=== PATIENT | female | born 1990 | race Caucasian/White ===

== ENCOUNTER 2017-05-17 18:40 | Emergency (ER) | payer MEDICARE, OTHER ==
[~2017-05-17] VITALS: Ht 167.6 cm; Wt 72.6 kg
[~2017-05-17 18:40] MED LIST: COLACE100 MG ORAL; DEPAKOTE ER500 MG ORAL; QUETIAPINE FUM200 MG ORAL; VENLAFAXINE HCL25 MG ORAL
[2017-05-17] MEDS ORDERED: SEROQUEL200 MG ORAL (18:46)
[2017-05-17 18:59] VITALS: BP 132/83
[2017-05-17 19:13] LABS: APPEARANCE,URINE TURBID; KETONES,URINE NEGATIVE (NEGATIVE); LEUKOCYTE ESTERASE ,URINE 1+ (NEGATIVE); NITRITE,URINE NEGATIVE (NEGATIVE); PH,URINE 8 (4.5-8.0); PROTEIN,URINE NEGATIVE (NEGATIVE); UROBILINOGEN,URINE 1 MG/DL (0.0-1.0)
[2017-05-17 19:15] VITALS: BP 132/83
[2017-05-17 19:21] LABS: RBC,URINE 0-2 /HPF (0 - 2); SQUAMOUS EPITHELIAL CELL,UR MANY /LPF (NONE/OCC); WBC,URINE 0-2 /HPF (0 - 2)
[2017-05-17 19:22] LABS: AMORPHOUS SEDIMENT,UR MANY /LPF; BACTERIA,URINE MANY /HPF
--- NOTE | 2017-05-17 19:40 | Emergency Room Report ---
History of Present Illness General Chief Complaint: Abdominal Pain Source: Patient, Medical Record Present Illness HPI Patient left without being fully evaluated by me Upon medical records, patient has had chronic abdominal pain, has been seen here in our ER, wanting opiates, left AMA last visit Patient was upset, stating that she wanted opiates, left because she was told that he cannot administer pain medication without performing workup first Patient ambulatory, appeared nontoxic Allergies: Coded Allergies: KETOROLAC (Verified Allergy, Unknown, 09/24/15) METOCLOPRAMIDE (Verified Allergy, Unknown, 09/24/15) PROCHLORPERAZINE (Verified Allergy, Unknown, 09/24/15) Patient History Last Menstrual Period: hysterectomy 2012 Nursing Documentation-[facility] Past Medical History: No History, Except For Hx Asthma: Yes Hx Neurological Problems: Yes - migraine Physical Exam Vital Signs Date Time Temp Pulse Resp B/P (MAP) Pulse Ox O2 Delivery O2 Flow Rate FiO2 05/17/17 18:43 99.3 105 16 132/83 100 Room Air Medical Decision Making Last Vital Signs Date Time Temp Pulse Resp B/P (MAP) Pulse Ox O2 Delivery O2 Flow Rate FiO2 05/17/17 19:15 99.3 16 132/83 100 Room Air 05/17/17 18:43 105 Vicky Webb M.D. May 17, 2017 19:40
== END 2017-05-17 19:15 | disposition left against medical advice (07) ==
LOC: EMR 19:14
DX: R10.9 Unspecified abdominal pain (principal); J45.909 Unspecified asthma, uncomplicated; Z88.8 Allergy status to other drugs, medicaments and biological substances
CPT/HCPCS: 80307; 81003; 81025; 87086; 99281